=== PATIENT | female | born 2000 | race Caucasian/White ===

== ENCOUNTER 2018-09-27 16:48 | Emergency (ER) | payer OTHER ==
[~2018-09-27] VITALS: Ht 165.1 cm; Wt 56.6 kg
[2018-09-27 17:04] VITALS: Ht 165.1 cm; Wt 56.6 kg
--- NOTE | 2018-09-27 17:17 | ERD ---
ER Documentation Chief Complaint Chief Complaint abd pain generalize body aches & fever x1wk HPI The patient is a 18-year-old female, presenting to the ER because of epigastric and lower abdominal pain for 1 week, worse this morning when she woke up with fever. She complains of sore throat for the last couple days, worse today, de nies nasal congestion, nasal discharge, cough. She denies neck pain, chest pain, dyspnea, vomiting, dysuria, diarrhea. She does not smoke nor drink Past medical/surgical history: None ROS All systems reviewed and are negative except as per history of present illness. Medications Home Meds Active Scripts Ibuprofen* (Motrin*) 600 Mg Tab, 600 MG PO Q6H PRN for PAIN AND OR ELEVATED TEMP, #20 TAB Prov:TATY RODGERS MD 09/27/18 Amoxicillin* (Amoxicillin*) 500 Mg Cap, 500 MG PO TID for 10 Days, CAP Prov:TATY RODGERS MD 09/27/18 Allergies Allergies: Coded Allergies: No Known Allergy (Unverified , 09/27/18) Physical Exam Vitals Vital Signs Date Temp Pulse Resp B/P (MAP) Pulse Ox O2 O2 Flow FiO2 Time Delivery Rate 09/27/18 99.1 98 19 100/63 100 Room Air 19:38 (75) 09/27/18 123 22 112/71 100 Room Air 18:56 (85) 09/27/18 102.1 17:45 09/27/18 103.7 149 18 153/80 99 17:04 (104) Physical Exam Const: No acute distress. Head: Atraumatic. Eyes: Normal Conjunctiva. ENT: Normal External Ears, Nose and Mouth. Bilateral tympanic membranes are obscured with moderate amount of several months. Tonsils are edematous/erythematous/with exudates Neck: Full range of motion. No meningismus. Resp: Clear to auscultation bilaterally. Cardio: Regular tachycardic. Abd: Soft, non distended, normal bowel sounds, moderate diffuse abdominal tenderness, more tenderness at epigastric/right upper quadrant/right lower quadrant, no rigidity/rebound/CVA tenderness Skin: No petechiae or rashes. Back: No midline or flank tenderness. Ext: No cyanosis, or edema. Neur: Awake and alert. No focal deficit Psych: Normal Mood and Affect. Result Diagram: 09/27/18 1743 09/27/18 1743 Results 24 hrs Laboratory Tests Test 09/27/18 17:35 09/27/18 17:40 09/27/18 17:43 09/27/18 17:45 Urine Color YELLOW Urine Clarity SLIGHTLY CLOUDY Urine pH 6.0 Urine Specific 1.019 [place]wey Urine Ketones 1+ mg/dL Urine Nitrite NEGATIVE mg/dL Urine Bilirubin NEGATIVE mg/dL Urine NEGATIVE mg/dL Urobilinogen Urine Leukocyte NEGATIVE Jean-Paul/ul Esterase Urine Microscopic 4 /HPF RBC Urine Microscopic 6 /HPF WBC Urine Squamous FEW /HPF Epithelial Cells Urine Mucus FEW /HPF Urine Hemoglobin 2+ mg/dL Urine Glucose NEGATIVE mg/dL Urine Total NEGATIVE mg/dl Protein POC Venous 2.5 mmol/L Lactate White Blood Count 15.1 10^3/ul Red Blood Count 4.74 10^6/ul Hemoglobin 14.6 g/dl Hematocrit 43.0 % Mean Corpuscular 90.7 fl Volume Mean Corpuscular 30.8 pg Hemoglobin Mean Corpuscular 34.0 g/dl Hemoglobin Concen t Red Cell 12.1 % Distribution Width Platelet Count 317 10^3/UL Mean Platelet 9.6 fl Volume Immature 0.300 % Granulocytes % Neutrophils % 86.1 % Lymphocytes % 7.7 % Monocytes % 5.8 % Eosinophils % 0.0 % Basophils % 0.1 % Nucleated Red 0.0 /100WBC Blood Cells % Immature 0.050 10^3/ul Granulocytes # Neutrophils # 13.0 10^3/ul Lymphocytes # 1.2 10^3/ul Monocytes # 0.9 10^3/ul Eosinophils # 0.0 10^3/ul Basophils # 0.0 10^3/ul Nucleated Red 0.0 10^3/ul Blood Cells # Prothrombin Time 12.7 Sec Prothrombin Time 1.0 Ratio INR International 0.94 Normalized Ratio Activated 28.1 Sec Partial Thrombopl ast Time Sodium Level 136 mmol/L Potassium Level 3.6 mmol/L Chloride Level 98 mmol/L Carbon Dioxide 24 mmol/L Level Anion Gap 14 Blood Urea 8 mg/dl Nitrogen Creatinine 0.69 mg/dl Est Glomerular > 60 mL/min Filtrat Rate mL/min Glucose Level 103 mg/dl Calcium Level 9.1 mg/dl Total Bilirubin 0.5 mg/dl Direct Bilirubin 0.00 mg/dl Indirect 0.5 mg/dl Bilirubin Aspartate Amino 23 IU/L Transf (AST/SGOT) Alanine 14 IU/L Aminotransferase (ALT/SGPT) Alkaline 79 IU/L Phosphatase Total Protein 8.3 g/dl Albumin 4.7 g/dl Globulin 3.60 g/dl Albumin/Globulin 1.30 Ratio Bedside Urine pH 6.0 (LAB) Bedside Urine 1+ Protein (LAB) Bedside Urine Negative Glucose (UA) Bedside Urine 1+ Ketones (LAB) Bedside Urine 2+ Blood Bedside Urine Negative Nitrite (LAB) Bedside Urine Trace Leukocyte Esteras e (L Test 09/27/18 17:47 09/27/18 19:23 POC Beta HCG, NEGATIVE Qualitative Lactic Acid Level 1.3 mmol/L Current Medications Medications Dose Sig/Adrián Start Time Status Last (Trade) Ordered Route PRN Stop Time Admin Dose Reason Admin Sodium 1,700 ml BOLUS OVER 2 09/27/18 DC 09/27/18 Chloride HOURS STAT 17:22 17:41 (NS) IV* 09/27/18 17:24 650 mg ONCE ONCE 09/27/18 DC 09/27/18 Acetaminophen PO 17:30 17:45 (Tylenol 09/27/18 17:31 Tab) Piperacillin 100 ml @ ONCE ONCE 09/27/18 DC 09/27/18 Sod/ 200 mls/hr IVPB 18:00 18:16 Tazobactam 09/27/18 18:29 Sod Ibuprofen 600 mg ONCE ONCE 09/27/18 DC 09/27/18 (Motrin) PO 18:00 18:15 09/27/18 18:01 Sodium 1,000 ml @ Q1H ONCE 09/27/18 Chloride 1,000 mls/hr IV 20:00 09/27/18 20:59 Procedures/[place] [address] Radiology Main Line: [phone] DIAGNOSTIC IMAGING REPORT Patient: NOHELIA VILLALTA : 2000 Age: 18 Sex: F MR #: [id number] DOS: 09/27/18 1722 Ordering MD: TATY RODGERS MD Location: E/R Room/Bed: PROCEDURE: CT ABDOMEN AND PELVIS WITHOUT CONTRAST. CLINICAL INDICATION: Abdominal pain and possible sepsis TECHNIQUE: CT scan of the abdomen and pelvis without contrast was performed on a multidetector high-resolution CT scanner. The patient was scanned without intravenous contrast. Coronal and sagittal reformatted images were obtained from the axial source images. Images were reviewed on a high-resolution PACS workstation. The total exam CTDI equals 6.1 mGy and the total exam DLP equals 315.4 mGy-cm. One or more of the following dose reduction techniques were used: Automated exposure control. Adjustment of the mA and/or kV according to patient size. Use of iterative reconstruction technique. DICOM images are available COMPARISON: None FINDINGS: CT abdomen: The lung bases are clear. The heart size is within normal limits. There is no significant pericardial effusion. Hepatic morphology is within normal limits. No gross contour deforming masses. The gallbladder is within normal limits. No evidence of intrahepatic or extrahepatic biliary dilatation. The spleen and pancreas are within normal limits. Both adrenal glands are within normal limits. Both kidneys are in normal anatomic position. No evidence of obstruction or hydronephrosis. No gross renal/ureteric calculi. The visualized GI tract demonstrate normal caliber loops of small and large bowel. No evidence of bowel obstruction. The appendix is within normal limits. Stool filled loops of large bowel suggestive of constipation. The unenhanced aorta is unremarkable. No significant retroperitoneal lymphadenopathy. CT pelvis: Bladder is within normal limits. Uterus is unremarkable. Stool noted within the rectosigmoid colon. No significant free fluid. No pelvic lymphadenopathy. The visualized osseous structures appears to be within normal limits. IMPRESSION: 1. No evidence of acute intra-abdominal/pelvic inflammatory process. No evidence of bowel obstruction. The appendix is within normal limits. 2. Mild constipation. 3. No evidence of free fluid or free air. No gross focal fluid collections. 4. Otherwise, unremarkable unenhanced CT scan of the abdomen/pelvis. RPTAT: AAPP Physician Ammy Date Time Electronically viewed and signed by Physician Ammy on 09/27/2018 18:20 JL/ CC: TATY RODGERS MD [id number] [place] [address] Radiology Main Line: [phone] DIAGNOSTIC IMAGING REPORT Patient: NOHELIA VILLALTA : 2000 Age: 18 Sex: F MR #: [id number] DOS: 09/27/181721 Ordering MD: TATY RODGERS MD Location: E/R Room/Bed: PROCEDURE: XR Chest. CLINICAL INDICATION: Sepsis TECHNIQUE: A single AP view of the chest was obtained. COMPARISON: None. FINDINGS: No focal airspace opacification, pleural effusion or pneumothorax is seen. The cardiomediastinal silhouette is within normal limits for size. The osseous structures are unremarkable. IMPRESSION: Unremarkable chest x-ray. RPTAT: HH .Barbie Tellez MD, MD Date Time Electronically viewed and signed by .Barbie Tellez MD, MD on 09/27/2018 17:42 .G/ CC: TATY RODGERS MD [id number] [place] [address] Radiology Main Line: [phone] DIAGNOSTIC IMAGING REPORT Patient: NOHELIA VILLALTA : 2000 Age: 18 Sex: F MR #: [id number] DOS: 09/27/181721 Ordering MD: TATY RODGERS MD Location: E/R Room/Bed: PROCEDURE: US LIMITED ABDOMEN RIGHT UPPER QUADRANT CLINICAL INDICATION: Abdominal pain TECHNIQUE: Multiple real-time images were acquired of the patient's right upper quadrant utilizing a high resolution transducer. COMPARISON: None FINDINGS: The pancreas is normal limits. The aorta and IVC are within normal limits. Hepatic morphology is within limits. There is normal homogeneous echotexture of the liver. The liver measures 13.8 cm in length. There is normal hepatic pedal flow of the portal vein. The gallbladder is visualized. No evidence of gallstones. No evidence of gallbladder wall thickening. The common bile duct is with normal limits measuring 2.3 mm. The right kidney measures 10.9 x 3.9 x 4.3 cm. The cortex and parenchymal with normal limits. No evidence of obstruction hydronephrosis. IMPRESSION: 1. No evidence of gallstones. Gallbladder and common bile duct are within normal limits. 2. Unremarkable right upper quadrant ultrasound of the abdomen. RPTAT: AARR Physician Ammy Date Time Electronically viewed and signed by Samantha Hoskins Physician on 09/27/2018 18:21 JL/ CC: TATY RODGERS MD [id number] EKG: Read by emergency physician Rate/Rhythm: Sinus tachycardia 137 beats/min QRS, ST, T-waves: No ST elevation, no T inversion, BERNARD, RWA Impression: Abnormal EKG MEDICAL MAKING DECISION: The patient is a 18-year-old female, presenting with acute exudative tonsillitis, acute dehydration. She was treated with normal saline 30 mL/kg IV for acute dehydration, Tylenol and Motrin for fever, Zosyn IV empirically upon arrival to the ER because of high fever and tachycardic and concerning for intra-abdominal pathology After the aforementioned treatment, she fell well on multiple reevaluation, is stable for outpatient follow-up The differential diagnoses considered include but are not limited to cholelithiasis, cholecystitis, choledocholithiasis, cholangitis, pancreatitis, hepatitis, gastritis, peptic ulcer disease, gastric ulcer, appendicitis, cystitis, diverticulitis, partial small bowel obstruction. Departure Diagnosis: Primary Impression: Exudative tonsillitis Additional Impression: Dehydration Condition: Good Comments She was discharged with Motrin, Tylenol, amoxicillin I discussed the findings with the patient. I advised the patient to follow-up w ith the primary physician or the ER tomorrow for reevaluation, sooner if needed and return if any concern. Disclaimer: Inadvertent spelling and grammatical errors are likely due to EHR/dictation software use and do not reflect on the overall quality of patient care. Also, please note that the electronic time recorded on this note does not necessarily reflect the actual time of the patient encounter. TATY RODGERS MD September 27, 2018 17:17
[2018-09-27] MEDS ORDERED: SODIUM CHLORIDE 0.9% 1L BAG IV* STA (17:22)
[2018-09-27] MEDS ORDERED: ACETAMINOPHEN 325 MG TAB PO ONE (17:30)
[2018-09-27] MEDS ORDERED: PIPER-TAZO 3.375 GM IV (PMX) 100 ML IVPB ONE (18:00)
[2018-09-27] MEDS ORDERED: IBUPROFEN 600 MG TAB PO ONE (18:00)
[2018-09-27] MEDS ORDERED: AMOX500C2 PO (19:58)
[2018-09-27] MEDS ORDERED: IBUP-1542 PO (19:58)
[2018-09-27] MEDS ORDERED: SOD CHLORIDE 0.9% 1,000 ML IV ONE (20:00)
[2018-09-27 21:39] VITALS: BP 110/78; PULSE 88; RESP 20
== END 2018-09-27 21:40 | disposition home or self-care (01) ==
LOC: E/R 16:48
DX: J03.90 Acute tonsillitis, unspecified (principal); E86.0 Dehydration
CPT/HCPCS: 36415; 71045; 74176; 76705; 80053; 81001; 81025; 83605; 85025; 85610; 85730; 87040; 87086; 87880; 93005; 96374; J2543; J7030; Z7502; Z7610; 81003